=== PATIENT | male | born 1980 | race Caucasian/White ===

== ENCOUNTER 2018-08-25 23:36 | Emergency (ER) | payer SELFPAY ==
[2018-08-25 23:37] VITALS: BP 146/92; PULSE 98; RESP 18; TEMP 36.3; O2SAT 98; BMI 51.2
--- NOTE | 2018-08-26 | RAD_ITS ---
STUDY: X-RAY - LUMBAR SPINE REASON FOR EXAM: Male, 38 years old. Patient fell. Back pain TECHNIQUE: 3 view(s) of the lumbar spine were obtained. COMPARISON: None FINDINGS: There are hypoplastic 12th ribs. There is normal alignment and curvature of the lumbosacral spine with narrowing of the L5-S1 disc space. There are no acute fractures. There is spina bifida at S1. RAD/Lumbar Spine 2 or 3 Views IMPRESSION: No fractures. Disc disease at L5-S1. Hypoplastic 12th ribs. Spina bifida occulta at S1. Electronically Signed: Miguel A Florez MD at 0:29 EST Tel , Service support ,
--- NOTE | 2018-08-26 00:02 | RAD_ITS ---
STUDY: X-RAY - RIGHT HIP REASON FOR EXAM: Male, 38 years old. Patient fell. Right hip pain TECHNIQUE: 2 views of the hip. COMPARISON: None. FINDINGS: The sacroiliac and hip joints are normal. There is a spina bifida occulta. There are no acute fractures or dislocations. The surrounding soft tissues are normal. RAD/HIP, UNI W/ Pelvis 2-3 Views IMPRESSION: No acute fractures-especially of the right hip Electronically Signed: Miguel A Florez MD at 0:26 EST Tel , Service support ,
--- NOTE | 2018-08-26 00:06 | ED.VISSUMM ---
- ER Visit Summary Date of Service: 08/26/18 Chief Complaint: Back injury History of Present Illness: The patient is a 38 M who presents for acute on chronic back pain after a fall. Patient has a history of back pain, but tonight slipped while pushing carts of his possessions, resulting in falling onto his right hip. He is now having worsening bilateral lower back pain. He denies any loss of bowel or bladder control, abdominal pain, numbness or tingling/weakness in the arms or legs. Patient has had no difficulty walking. He is complaining mainly of right hip pain and lower back pain. He has not taken any medication for the pain get as it occurred just prior to arrival. Physical Examination: Vital signs: afebrile, hemodynamically stable, no hypoxia on room air General: well nourished, well developed, elevated BMI, in no distress Skin: warm, dry, no rash, no pallor HEENT: normocephalic and atraumatic; PERRL, EOMI, moist mucous membranes Cardiovascular: regular rate and rhythm without murmurs, no peripheral edema, 2+ pulses all distal extremities Respiratory: No increased work of breathing Abdominal: Abdomen is soft, obese, nontender with normoactive bowel sounds, no guarding or rebound, no masses MSK: Moves all extremities, no deformities, normal strength, pelvis is stable and nontender on palpation, full range of motion of the hips with mild pain with motion of the right hip Back: No midline tenderness, deformities or step-offs. C-spine with full active range of motion without pain. Paraspinal tenderness to palpation, right greater than left, in the lumbar spine. Straight leg raise negative bilaterally Neuro: Awake and alert, oriented ?4. No facial droop, sensation and motor function intact and symmetric Test Results: Clinical Impression(s) from Imaging Studies Lumbar Spine X-Ray 08/26/18 00:00 IMPRESSION: No fractures. Disc disease at L5-S1. Hypoplastic 12th ribs. Spina bifida occulta at S1. Electronically Signed: Miguel A Florez MD at 0:29 EST Tel , Service support , Hip/Pelvis X-Ray 08/26/18 00:02 IMPRESSION: No acute fractures-especially of the right hip Electronically Signed: Miguel A Florez MD at 0:26 EST Tel , Service support , Medications Given Discontinued Medications Naproxen (Naprosyn) 500 mg PO X1 ONE Stop: 08/25/18 23:56 Last Admin: 08/26/18 00:16 Dose: 500 mg Emergency Department Course and Treatment: Patient was given naproxen for pain. Because he is having increased pain after a fall, x-ray was performed of the lumbosacral spine and the right hip. It showed no acute fractures or dislocations. Patient given a prescription for naproxen, and we discussed nonmedication care for back pain as well. Patient was given follow-up information for a family doctor and encouraged to establish care. Patient then mentioned he has been having cramping in his calves after walking that has been going on since he had surgery to his right lower leg, which has been since 2001. Patient had no significant findings on exam. He was encouraged to follow-up with a primary care provider for further workup of the intermittent leg cramping he has had for 16 years. Treatment Plan: [] Disposition: [] Impression: Acute on chronic back pain, lumbosacral strain, right hip contusion This note was generated with [employer] dictation software. It may contain incorrect words, spelling, and punctuation that were not noted in review of the chart prior to signing ED Disposition - Plan for ED Patient: Disposition: Home or Assisted Living Chief Complaint: Back Instructions: ED Low Back Pain Injury, ED Contusion Back Prescriptions: RX: Naproxen [Naprosyn] 500 mg PO BID PRN #20 tab Referrals: Page Light MD [STAFF PHYSICIAN] - 10-14 Days if not better Care Physician,No Primary [Primary Care Provider] - Additional Instructions: Use the naproxen as needed for pain. You may also use [id number] pain medication of your choice. Do gentle stretching of your back and your lower legs to help with any pain and muscle tightness. If you have any worsening of your condition or any new concerning symptoms, please return immediately to the emergency department for another evaluation.
--- NOTE | 2018-08-26 00:10 | ED.DCSUM_ITS ---
- ER Visit Summary Date of Service: 08/26/18 Chief Complaint: Back injury History of Present Illness: The patient is a 38 M who presents for acute on chronic back pain after a fall. Patient has a history of back pain, but tonight slipped while pushing carts of his possessions, resulting in falling onto his right hip. He is now having worsening bilateral lower back pain. He denies any loss of bowel or bladder control, abdominal pain, numbness or tingling/weakness in the arms or legs. Patient has had no difficulty walking. He is complaining mainly of right hip pain and lower back pain. He has not taken any medication for the pain get as it occurred just prior to arrival. Physical Examination: Vital signs: afebrile, hemodynamically stable, no hypoxia on room air General: well nourished, well developed, elevated BMI, in no distress Skin: warm, dry, no rash, no pallor HEENT: normocephalic and atraumatic; PERRL, EOMI, moist mucous membranes Cardiovascular: regular rate and rhythm without murmurs, no peripheral edema, 2+ pulses all distal extremities Respiratory: No increased work of breathing Abdominal: Abdomen is soft, obese, nontender with normoactive bowel sounds, no guarding or rebound, no masses MSK: Moves all extremities, no deformities, normal strength, pelvis is stable and nontender on palpation, full range of motion of the hips with mild pain with motion of the right hip Back: No midline tenderness, deformities or step-offs. C-spine with full active range of motion without pain. Paraspinal tenderness to palpation, right greater than left, in the lumbar spine. Straight leg raise negative bilaterally Neuro: Awake and alert, oriented ?4. No facial droop, sensation and motor function intact and symmetric Test Results: Clinical Impression(s) from Imaging Studies Lumbar Spine X-Ray 08/26/18 00:00 IMPRESSION: No fractures. Disc disease at L5-S1. Hypoplastic 12th ribs. Spina bifida occulta at S1. Electronically Signed: Miguel A Florez MD at 0:29 EST Tel , Service support , Hip/Pelvis X-Ray 08/26/18 00:02 IMPRESSION: No acute fractures-especially of the right hip Electronically Signed: Miguel A Florez MD at 0:26 EST Tel , Service support , Medications Given Discontinued Medications Naproxen (Naprosyn) 500 mg PO X1 ONE Stop: 08/25/18 23:56 Last Admin: 08/26/18 00:16 Dose: 500 mg Emergency Department Course and Treatment: Patient was given naproxen for pain. Because he is having increased pain after a fall, x-ray was performed of the lumbosacral spine and the right hip. It showed no acute fractures or dislocations. Patient given a prescription for naproxen, and we discussed nonmedication care for back pain as well. Patient was given follow-up information for a family doctor and encouraged to establish care. Patient then mentioned he has been having cramping in his calves after walking that has been going on since he had surgery to his right lower leg, which has been since 2001. Patient had no significant findings on exam. He was encouraged to follow-up with a primary care provider for further workup of the intermittent leg cramping he has had for 16 years. Treatment Plan: [] Disposition: [] Impression: Acute on chronic back pain, lumbosacral strain, right hip contusion This note was generated with [employer] dictation software. It may contain incorrect words, spelling, and punctuation that were not noted in review of the chart prior to signing ED Disposition - Plan for ED Patient: Disposition: Home or Assisted Living Chief Complaint: Back Instructions: ED Low Back Pain Injury, ED Contusion Back Prescriptions: RX: Naproxen [Naprosyn] 500 mg PO BID PRN #20 tab Referrals: Page Light MD [STAFF PHYSICIAN] - 10-14 Days if not better Care Physician,No Primary [Primary Care Provider] - Additional Instructions: Use the naproxen as needed for pain. You may also use [id number] pain medication of your choice. Do gentle stretching of your back and your lower legs to help with any pain and muscle tightness. If you have any worsening of your condition or any new concerning symptoms, please return immediately to the emergency department for another evaluation.
[2018-08-26] MEDS: Naproxen 500 MG Tablet PO (00:16)
--- NOTE | 2018-08-26 00:41 | ED.DEP ---
ED Disposition - Plan for ED Patient: Disposition: Home or Assisted Living Chief Complaint: Back Instructions: ED Contusion Back, ED Low Back Pain Injury Prescriptions: Naproxen [Naprosyn] 500 mg PO BID PRN #20 tab Referrals: Care Physician,No Primary [Primary Care Provider] - Page Light MD [STAFF PHYSICIAN] - 10-14 Days if not better Additional Instructions: Use the naproxen as needed for pain. You may also use [id number] pain medication of your choice. Do gentle stretching of your back and your lower legs to help with any pain and muscle tightness. If you have any worsening of your condition or any new concerning symptoms, please return immediately to the emergency department for another evaluation.
[2018-08-26 00:49] VITALS: RESP 18
== END 2018-08-26 00:52 | disposition home or self-care (01) ==
PROVIDERS: Emergency Provider Emergency Medicine
DX: S39.012A Strain of muscle, fascia and tendon of lower back, initial encounter (principal); S30.0XXA Contusion of lower back and pelvis, initial encounter; S70.01XA Contusion of right hip, initial encounter; M54.9 Dorsalgia, unspecified; G89.29 Other chronic pain; W01.0XXA Fall on same level from slipping, tripping and stumbling without subsequent striking against object, initial encounter; Y93.9 Activity, unspecified; Y92.9 Unspecified place or not applicable; E66.9 Obesity, unspecified; R25.2 Cramp and spasm; Z72.0 Tobacco use
CPT/HCPCS: 72100; 73502; 99283

== ENCOUNTER 2018-08-28 03:52 | Emergency (ER) | payer SELFPAY ==
[2018-08-28 03:53] VITALS: BP 130/79; PULSE 89; RESP 15; TEMP 36.7; O2SAT 99; BMI 51.5
[2018-08-28] MEDS: Naproxen 500 MG Tablet PO (04:21)
--- NOTE | 2018-08-28 04:26 | ED.DEP ---
ED Disposition - Plan for ED Patient: Chief Complaint: Other, Pain/Inj Instructions: ED Muscle Pain Leg Cramps Referrals: Care Physician,No Primary [Primary Care Provider] - Ally Barrow [NON-STAFF] -
--- NOTE | 2018-08-28 04:27 | ED.VISSUMM ---
- ER Visit Summary Date of Service: 08/28/18 Chief Complaint: Leg cramps History of Present Illness: The patient is a 38 M presenting with leg cramps. Patient is homeless. He states when he gets cold he sometimes has leg cramps. He states this has been intermittent and has been going on for the past 16 years. He feels improved when he warms up. He was seen in the ED on August 26 after a fall. He was given prescription for Naprosyn. He did not have this filled. He has a history of asthma and chronic back pain. He denies other complaints. Physical Examination: Vitals are stable. Patient is afebrile. Alert no acute distress. HEENT exam is unremarkable. Neck is supple. Lungs are clear and equal bilaterally. Heart is regular rate and rhythm. Abdomen is soft nontender nondistended. Extremities are unremarkable. No signs of infection. Normal distal pulses. Normal cap refill Skin is warm and dry. No focal neurologic deficit. Remainder of exam is unremarkable. Emergency Department Course and Treatment: Patient is given Naprosyn and Flexeril. He is advised to have his Naprosyn prescription filled when able. Advised to follow-up with [facility]. Advised return to ED for worsening complaints. Disposition: Discharge home Impression: Bilateral lower extremity muscle cramps, cold exposure This note was generated with [employer] dictation software. It may contain incorrect words, spelling, and punctuation that were not noted in review of the chart prior to signing ED Disposition - Plan for ED Patient: Chief Complaint: Other, Pain/Inj Instructions: ED Muscle Pain Leg Cramps Referrals: Ally Barrow [NON-STAFF] - Care Physician,No Primary [Primary Care Provider] -
--- NOTE | 2018-08-28 04:30 | ED.DCSUM_ITS ---
- ER Visit Summary Date of Service: 08/28/18 Chief Complaint: Leg cramps History of Present Illness: The patient is a 38 M presenting with leg cramps. Patient is homeless. He states when he gets cold he sometimes has leg cramps. He states this has been intermittent and has been going on for the past 16 y ears. He feels improved when he warms up. He was seen in the ED on August 26 after a fall. He was given prescription for Naprosyn. He did not have this filled. He has a history of asthma and chronic back pain. He denies other complaints. Physical Examination: Vitals are stable. Patient is afebrile. Alert no acute distress. HEENT exam is unremarkable. Neck is supple. Lungs are clear and equal bilaterally. Heart is regular rate and rhythm. Abdomen is soft nontender nondistended. Extremities are unremarkable. No signs of infection. Normal distal pulses. Normal cap refill Skin is warm and dry. No focal neurologic deficit. Remainder of exam is unremarkable. Emergency Department Course and Treatment: Patient is given Naprosyn and Flexeril. He is advised to have his Naprosyn prescription filled when able. Advised to follow-up with [facility]. Advised return to ED for worsening complaints. Disposition: Discharge home Impression: Bilateral lower extremity muscle cramps, cold exposure This note was generated with [employer] dictation software. It may contain incorrect words, spelling, and punctuation that were not noted in review of the chart prior to signing ED Disposition - Plan for ED Patient: Chief Complaint: Other, Pain/Inj Instructions: ED Muscle Pain Leg Cramps Referrals: Ally Barrow [NON-STAFF] - Care Physician,No Primary [Primary Care Provider] -
[2018-08-28 04:48] VITALS: BP 128/86; PULSE 74; RESP 16; O2SAT 98
--- NOTE | 2018-08-28 10:21 | CM.ED ---
Social Work Note Referrals from nursing for 3 males that have presented to the ED for the past 3 days d/t homelessness and frigid weather. Introduced self and role at [facility]. Pt is accompanied by his father, Sigifredo, and brother, Jose Raul. According to the pt they were staying at [facility] on [address] which used to be an old trailer park. States that they fell behind on rent and are now kicked out. Care broke down and it would cost about $50 to fix it and that if they did not get it today it would be towed. Inform that unfortunately this is not something the hospital can aide with and encourage them to go to [facility] and [employer] for resources. Educated to [facility] long term in [place]. They report that they have been there in the past and will not return. Express concern as it is winter months and cold, and they do not have long term. They continue to state they would not go there. They are not allowed back at [facility] per their report. Provide with information on food pantries, and soup june, [employer] and [employer]. They request a ride back to their makeshift long term near [facility] [place] [facility] [place] [id number]. Reinforced that they cannot continue to return to the ED as it is not a long term, and that calling the squad for non-emergent conditions is a crime that they could be punished for if pursued by law enforcement. Understanding expressed. Jose Rual states that he did fill out an application at [employer] on [facility] yesterday, there is an open interview tomorrow and he could start as early as Tuesday. Placed call to Florencia at [facility] who confirms they are not allowed to return. States that for confidentiality reasons she cannot share why, but reaffirms they are not to return. Placed call to marketing and transportation to above address was provided at 1030. No further needs at this time. PLAN: Return to makeshift long term after declining provided options. To seek assistance from known community resources. Lyndsey Feldman, [employer], [place]
== END 2018-08-28 05:00 | disposition home or self-care (01) ==
PROVIDERS: Emergency Provider Emergency Medicine
DX: R25.2 Cramp and spasm (principal); T69.9XXA Effect of reduced temperature, unspecified, initial encounter; X31.XXXA Exposure to excessive natural cold, initial encounter; J45.909 Unspecified asthma, uncomplicated; M54.9 Dorsalgia, unspecified; G89.29 Other chronic pain; Z59.0 Homelessness; Z72.0 Tobacco use
CPT/HCPCS: 99283